=== PATIENT | male | born 1955 | race Caucasian/White ===

== ENCOUNTER 2017-03-27 09:31 | Emergency (ER) | payer BC, OTHER ==
[2017-03-27 09:45] VITALS: BP 139/86
[2017-03-27] MEDS ORDERED: Bacitracin Oint 1 GM U/D Packet TOP ONE (10:02)
--- NOTE | 2017-03-27 10:04 | EDM.PDOC ---
ED HPI GENERAL MEDICAL PROBLEM - General Chief Complaint: Laceration Stated Complaint: CUT LT POINTER FINGER W/TABLE SAW Time Seen by Provider: 03/27/17 10:03 Source of Information: Reports: Patient History Limitations: Reports: No Limitations - History of Present Illness INITIAL COMMENTS - FREE TEXT/NARRATIVE: pt has avulsed off of the side of the left index finger . He has cut through the nail Onset: Today Duration: Hour(s): Location: Reports: Upper Extremity, Left Associated Symptoms: Reports: No Other Symptoms Left Hand Pain Score (Numeric/FACES): 3 - Related Data Allergies Allergy/AdvReac Type Severity Reaction Status Date / Time No Known Allergies Allergy Verified 03/27/17 09:45 Home Meds: Home Meds NK [No Known Home Meds] 04/04/15 [History] Past Medical History Genitourinary History: Reports: Renal Calculus Musculoskeletal History: Reports: Fracture Other Musculoskeletal History: l arm - Infectious Disease History Infectious Disease History: Reports: Chicken Pox, Measles - Past Surgical History Other HEENT Surgeries/Procedures: trach when he was 5 years old Social & Family History - Tobacco Use Smoking Status *Q: Current Every Day Smoker Years of Tobacco use: 60 Packs/Tins Daily: 1 Used Tobacco, but Quit: No Second Hand Smoke Exposure: Yes - Caffeine Use Caffeine Use: Reports: Coffee, Soda, Tea - Alcohol Use Days Per Week of Alcohol Use: 3 Number of Drinks Per Day: 1 Total Drinks Per Week: 3 - Recreational Drug Use Recreational Drug Use: No Drug Use in Last 12 Months: Yes Recreational Drug Type: Reports: Marijuana/Hashish ED ROS GENERAL - Review of Systems Review Of Systems: See Below Constitutional: Reports: No Symptoms HEENT: Reports: No Symptoms Respiratory: Reports: No Symptoms Cardiovascular: Reports: No Symptoms Endocrine: Reports: No Symptoms GI/Abdominal: Reports: No Symptoms : Reports: No Symptoms Musculoskeletal: Reports: Other (Pt has avulsed the side of the left index finger/) ED EXAM, SKIN/RASH Exam: See Below Text/Narrative:: Pt has a avulsion type laceration off the side of the tip of the left index finger. Exam Limited By: No Limitations General Appearance: Alert, Anxious Extremities: Other ( Left index finger Has 1 inch laceration of the side of the index finger . There was a removal of about 1/4 of the nail. He had normal sensatiopn and normal movement of the finger. ) Course - Vital Signs Last Recorded V/S: Last Vital Signs Temp 36.1 C 03/27/17 09:46 Pulse 61 03/27/17 09:46 Resp 16 03/27/17 09:46 BP 139/86 03/27/17 09:46 Pulse Ox 95 03/27/17 09:46 - Orders/Labs/Meds Meds: Medications Discontinued Medications Generic Name Dose Route Start Last Admin Trade Name Kanwal PRN Reason Stop Dose Admin Bacitracin 1 dose 03/27/17 10:02 03/27/17 10:10 Bacitracin Oint 1 Gm TOP 03/27/17 10:03 1 dose ONETIME ONE Administration Lidocaine HCl 5 ml 03/27/17 10:02 03/27/17 10:10 Xylocaine-Mpf 1% INJECT 03/27/17 10:03 5 ml ONETIME ONE Administration - Re-Assessments/Exams Free Text/Narrative Re-Assessment/Exam: 03/27/17 10:45 xray was obtained which did not show a fracture. The wound was cleansed well and infiltrated with lidocaine. The laceration at the tip was closed and the avulsion was brought down toward the nail. to make it a smaller space to fill in. The wound was dressed with bacatracin and a over the tip finger splint was applied. He will have stitches removed in 8 days. He will leave the present dressing inplace for 2 days. He will then start dressing it with a nonstick dry dressing/ 04/03/17 07:23 Departure - Departure Time of Disposition: 10:47 Disposition: Home, Self-Care 01 Condition: Fair Clinical Impression: Laceration - Discharge Information Instructions: Laceration Care, Adult Referrals: PCP,None [Primary Care Provider] - Forms: ED Department Discharge Care Plan Goals: keep dry, sr in 7-8 days, no further ointments, use a nonstick dressing.
--- NOTE | 2017-03-27 10:25 | CR ---
Fingers Second Digit Lt F1 INDICATION: injury to index finger left FINDINGS: Multiple small metallic densities projected over the dorsum of the left hand at the level of the second and third MCP joints, likely representing foreign bodies. No evidence for acute fractu re of the left second digit.
== END 2017-03-27 11:12 | disposition home or self-care (01) ==
LOC: JP.ED 09:31
DX: S61.211A Laceration without foreign body of left index finger without damage to nail, initial encounter (principal); W31.2XXA Contact with powered woodworking and forming machines, initial encounter
CPT/HCPCS: 12001; 73140-26-F1; 73140-F1; 99283-25

== ENCOUNTER 2021-11-17 13:14 | Emergency (ER) | payer BC, MEDICARE, OTHER ==
[2021-11-17] MEDS ORDERED: Bupivacaine 0.5% 10 ML SDV INJECT ONE (13:28)
[2021-11-17] MEDS ORDERED: ceFAZolin 1 GM in Premix Bag 1 BAG IV ONE ×2 (14:54→15:15)
[2021-11-17] MEDS ORDERED: Bacitracin Oint 1 GM U/D Packet TOP ONE (14:55)
[2021-11-17 16:05] VITALS: BP 107/60; PULSE 58
== END 2021-11-17 16:05 | disposition home or self-care (01) ==
LOC: JP.ED 13:14
DX: S61.012A Laceration without foreign body of left thumb without damage to nail, initial encounter (principal); Z72.0 Tobacco use; Z91.030 Bee allergy status; W27.0XXA Contact with workbench tool, initial encounter
CPT/HCPCS: 12001; 12002; 73140-26-FA; 73140-FA; 96365; 99282; 99283-25; J0690; J3490

== ENCOUNTER 2022-11-27 13:33 | Emergency (ER) | payer SELFPAY ==
[2022-11-27] MEDS ORDERED: Albuterol/Ipratropium 3.0-0.5 MG/3 ML Neb Soln NEB ONE (14:19)
[2022-11-27] MEDS ORDERED: methylPREDNISolone Sodium Succinate 125 MG/2 ML SDV IM ONE (15:08)
[2022-11-27 15:59] VITALS: BP 127/84; PULSE 73
== END 2022-11-27 16:03 | disposition home or self-care (01) ==
LOC: JP.ED 13:33
DX: J44.1 Chronic obstructive pulmonary disease with (acute) exacerbation (principal); Z91.030 Bee allergy status; Z72.0 Tobacco use
CPT/HCPCS: 71046; 94640; 96372; 99285; J2930; 99283; J7620